=== PATIENT | female | born 1990 | race Hispanic/Latino ===

== ENCOUNTER 2017-09-18 21:34 | Inpatient (IN) | payer MEDICAID ==
[~2017-09-18] VITALS: Ht 160 cm; Wt 67.6 kg
[2017-09-18] MEDS ORDERED: LACTATED RINGERS 1000ML 1,000 ML IV PRN (22:45)
[2017-09-18] MEDS ORDERED: PREN1TAB26 PO (22:52)
[2017-09-18] MEDS ORDERED: FERR1TAB22 PO (22:52)
[2017-09-18 23:29] LABS: APPEARANCE,URINE Clear (CLEAR); BILIRUBIN,URINE Negative (NEGATIVE); COLOR,URINE Yellow (YELLOW); GLUCOSE, URINE (UA) Negative (NEGATIVE); KETONES,URINE Negative (NEGATIVE); LEUKOCYTE ESTERASE ,URINE Small (NEGATIVE); NITRATE,URINE Negative (NEGATIVE); OCCULT BLOOD,URINE Negative (NEGATIVE); PH,URINE 6.5 (5.0-8.0); PROTEIN,URINE Trace (NEGATIVE)
[2017-09-18 23:31] LABS: HEMATOCRIT 30.6 % (36-48); MEAN CORPUSCULAR HEMOGLOBIN 25.6 pg (27.0-33.0); MEAN CORPUSCULAR HGB CONC 32.4 g/dL (32.0-36.0); MEAN CORPUSCULAR VOLUME 79.2 fL (79-99); PLATELET COUNT (AUTO) 213 K/uL (130-400); RED BLOOD CELL COUNT(AUTO) 3.87 MIL/uL (4.00-5.50); RED CELL DISTRIBUTION WIDTH 18.5 % (11.0-15.5); WHITE BLOOD COUNT (AUTO) 7.9 K/uL (4.8-10.8)
[2017-09-18 23:35] LABS: BACTERIA,URINE Few /HPF (None Seen); RBC,URINE 0-1 /HPF (0-1)
[2017-09-19] VITALS (10 sets, daily range): BP systolic 120–136; BP diastolic 60–87
[2017-09-19] MEDS ORDERED: OXYTOCIN 10 USP UNITS/ML 20 UNIT in LACTATED RINGERS 1000ML 1,000 ML IV SCH (03:00)
[2017-09-19] MEDS ORDERED: LACTATED RINGERS 1000ML 1,000 ML IV ONE (03:13)
[2017-09-19] MEDS ORDERED: OXYTOCIN 10 USP UNITS/ML ONE (03:14)
[2017-09-19] MEDS ORDERED: PROMETHAZINE HCL 25 MG/ML 1ML AMPULE IM SCH (05:30)
[2017-09-19] MEDS ORDERED: MEPERIDINE-PF 50 MG/ML SYG IVP ONE (05:30)
[2017-09-19] MEDS ORDERED: MEPERIDINE-PF 50 MG/ML SYG ONE (07:05)
[2017-09-19] MEDS ORDERED: MEPERIDINE-PF 50 MG/ML SYG IVP SCH (07:15)
[2017-09-19] MEDS ORDERED: ACETAMINOPHEN 325 MG TAB PO PRN (08:45)
[2017-09-19] MEDS ORDERED: DIPH,PERTUSS(ACELL),TET VAC/PF 0.5 ML VIAL IM PRN (08:45)
[2017-09-19] MEDS ORDERED: IBUPROFEN 600 MG TABLET PO PRN (08:45)
[2017-09-19] MEDS ORDERED: OXYTOCIN-LR 20 UNITS/1000 ML 1,000 ML IV SCH (08:45)
[2017-09-19] MEDS ORDERED: WITCH HAZEL 1 PAD TP PRN (08:45)
[2017-09-19] MEDS ORDERED: MEASLES/MUMPS/RUBELLA VACCINE, LIVE 0.5 ML/VIAL SQ PRN (08:45)
[2017-09-19] MEDS ORDERED: LANOLIN 30GM OINTMENT TP PRN (08:45)
[2017-09-19] MEDS ORDERED: BENZOCAINE/LANOLIN/ALOE VERA 60 ML AEROSOL TP PRN (08:45)
[2017-09-19] MEDS: DOCUSATE SODIUM 100 MG CAP PO SCH ×2 (09:24→21:00)
[2017-09-20 03:05] VITALS: BP 131/75
[2017-09-20 05:33] LABS: HEMATOCRIT 29.7 % (36-48); MEAN CORPUSCULAR HEMOGLOBIN 26.8 pg (27.0-33.0); MEAN CORPUSCULAR HGB CONC 33.7 g/dL (32.0-36.0); MEAN CORPUSCULAR VOLUME 79.4 fL (79-99); PLATELET COUNT (AUTO) 215 K/uL (130-400); RED BLOOD CELL COUNT(AUTO) 3.74 MIL/uL (4.00-5.50); RED CELL DISTRIBUTION WIDTH 18.4 % (11.0-15.5); WHITE BLOOD COUNT (AUTO) 9.2 K/uL (4.8-10.8)
[2017-09-20 08:17] VITALS: BP 133/71
[2017-09-20 08:25] LABS: HEPATITIS Bs ANTIGEN SCREEN P Negative (Negative)
[2017-09-20] MEDS: DOCUSATE SODIUM 100 MG CAP PO SCH (09:15)
[2017-09-20 11:02] VITALS: BP 125/70
== END 2017-09-20 13:15 | disposition home or self-care (01) | DRG 560 ==
LOC: LDH 21:34 → WSH 09-19 08:44 → PREOBSVTOIN 09-24 21:33
PROVIDERS: ADMIT Obstetrics & Gynecology; ATTEND Obstetrics & Gynecology
PROC: 10E0XZZ Delivery of Products of Conception, External Approach (ICD-10-PCS; principal; 2017-09-19)
PROC: 10907ZC Drainage of Amniotic Fluid, Therapeutic from Products of Conception, Via Natural or Artificial Opening (ICD-10-PCS; 2017-09-19)
PROC: 3E0234Z Introduction of Serum, Toxoid and Vaccine into Muscle, Percutaneous Approach (ICD-10-PCS; 2017-09-19)
PROC: 3E0134Z Introduction of Serum, Toxoid and Vaccine into Subcutaneous Tissue, Percutaneous Approach (ICD-10-PCS; 2017-09-19)
DX: O80 Encounter for full-term uncomplicated delivery (principal); Z23 Encounter for immunization; Z37.0 Single live birth; Z3A.39 39 weeks gestation of pregnancy
CPT/HCPCS: 36415; 81001; 85027; 86592; 86850; 86900; 86901; 87340; A4351; A4606; J2175; J2550; J2590; J7120